=== PATIENT | female | born 1965 | race Caucasian/White ===

== ENCOUNTER 2016-12-23 14:29 | Emergency (ER) | payer OTHER ==
[~2016-12-23] VITALS: Ht 154.9 cm; Wt 73.0 kg
[2016-12-23 16:26] LABS: ASPARTATE AMINO TRANSFERASE 134 U/L (15-37); BLOOD UREA NITROGEN 11 mg/dL (7-18)
[2016-12-23 18:36] VITALS: BP 158/84
== END 2016-12-23 18:43 | disposition home or self-care (01) ==
LOC: ED 18:37
DX: K80.20 Calculus of gallbladder without cholecystitis without obstruction (principal); R79.89 Other specified abnormal findings of blood chemistry
CPT/HCPCS: 36415; 76700; 80053; 80076; 83690; 85025; 85610; 85730; 86308; 99285